=== PATIENT | female | born 1960 | race Caucasian/White ===

== ENCOUNTER 2018-07-23 18:06 | Outpatient (REF) | payer OTHER, SELFPAY ==
[2018-07-23 22:06] LABS: Anion Gap 9.1 mmol/L (3-11); BUN 15 mg/dL (7-18); CO2 26.9 mmol/L (21.0-32.0); CREATININE 1.03 mg/dL (0.55-1.02); Calcium 9.4 mg/dL (8.5-10.1); Chloride 102 mmol/L (98-107); Estimated GFR 55.04 (mL/min/1.73m2); Glucose 131 mg/dL (70-100); Potassium 3.8 mmol/L (3.5-5.1); Sodium 138 mmol/L (136-145)
[2018-07-23 22:16] LABS: Hemoglobin A1C 6.8 % (4.5-6.2)
[2018-07-23 22:48] LABS: Calculated LDL 124; Cholesterol 180 mg/dL (50-200); HDL Cholesterol 38 mg/dL (40-60); Triglyceride 93 mg/dL (30-150)
== END 2018-07-23 18:26 ==
LOC: NCHCN 18:06
PROVIDERS: PCP Nurse Practitioner Family; Visit Provider Nurse Practitioner Family
DX: Z00.00 Encounter for general adult medical examination without abnormal findings (principal); E11.9 Type 2 diabetes mellitus without complications; I10 Essential (primary) hypertension; N28.9 Disorder of kidney and ureter, unspecified; E66.9 Obesity, unspecified; M72.0 Palmar fascial fibromatosis [Dupuytren]
CPT/HCPCS: 80048; 80061; 83721; 83036

== ENCOUNTER 2019-09-24 16:47 | Outpatient (REF) | payer OTHER, SELFPAY ==
[2019-09-24 21:04] LABS: Hemoglobin A1C 6.8 % (3.8-5.6)
[2019-09-24 21:18] LABS: Anion Gap 5.4 mmol/L (3-11); BUN 14 mg/dL (7-18); CO2 28.6 mmol/L (21.0-32.0); CREATININE 0.99 mg/dL (0.55-1.02); Calcium 9.5 mg/dL (8.5-10.1); Chloride 104 mmol/L (98-107); Estimated GFR 57.41 (mL/min/1.73m2); Glucose 121 mg/dL (74-106); Magnesium 1.8 mg/dL (1.8-2.4); Potassium 3.8 mmol/L (3.5-5.1); Sodium 138 mmol/L (136-145); Vitamin B12 297 pg/mL (193-986)
== END 2019-09-24 17:07 ==
LOC: NCHCN 16:47
PROVIDERS: PCP Nurse Practitioner Family; Visit Provider Nurse Practitioner Family
DX: Z00.8 Encounter for other general examination (principal); E11.9 Type 2 diabetes mellitus without complications; I10 Essential (primary) hypertension; K21.9 Gastro-esophageal reflux disease without esophagitis; Z51.81 Encounter for therapeutic drug level monitoring
CPT/HCPCS: 80048; 82607; 83036; 83735

== ENCOUNTER 2020-03-26 15:11 | Outpatient (REF) | payer OTHER, SELFPAY ==
[2020-03-26 15:01] LABS: Microalb ug/mg Crea 4.2 ug/mg Cr
== END 2020-03-26 15:12 | disposition home or self-care (01) ==
LOC: NCHCN 15:11
PROVIDERS: PCP Nurse Practitioner Family; Visit Provider Nurse Practitioner Family
DX: E11.9 Type 2 diabetes mellitus without complications (principal); I10 Essential (primary) hypertension
CPT/HCPCS: 82043; 82570

== ENCOUNTER 2020-09-22 16:33 | Outpatient (REF) | payer OTHER, SELFPAY ==
[2020-09-22 17:08] LABS: Anion Gap 7.5 mmol/L (3-11); BUN 17 mg/dL (7-18); CO2 28.5 mmol/L (21.0-32.0); Calcium 9.2 mg/dL (8.5-10.1); Chloride 102 mmol/L (98-107); Estimated GFR 56.56 (mL/min/1.73m2); Glucose 128 mg/dL (74-106); Magnesium 1.8 mg/dL (1.8-2.4); Sodium 138 mmol/L (136-145); Vitamin B12 263 pg/mL (193-986)
== END 2020-09-22 16:34 | disposition home or self-care (01) ==
LOC: NCHCN 16:33
PROVIDERS: PCP Nurse Practitioner Family; Visit Provider Nurse Practitioner Family
DX: I10 Essential (primary) hypertension (principal); E11.9 Type 2 diabetes mellitus without complications; N28.9 Disorder of kidney and ureter, unspecified; K21.9 Gastro-esophageal reflux disease without esophagitis; R01.1 Cardiac murmur, unspecified; Z79.899 Other long term (current) drug therapy
CPT/HCPCS: 80048; 82607; 83735

== ENCOUNTER 2021-10-11 21:13 | Outpatient (REF) | payer OTHER, SELFPAY ==
[2021-10-11 22:01] LABS: Hemoglobin A1C 7.5 % (<5.7)
[2021-10-11 22:03] LABS: Anion Gap 10.9 mmol/L (3-11); BUN 22 mg/dL (7-18); CO2 27.1 mmol/L (21.0-32.0); CREATININE 1.5 mg/dL (0.55-1.02); Calcium 9.1 mg/dL (8.5-10.1); Chloride 106 mmol/L (98-107); Glucose 127 mg/dL (74-106); Sodium 144 mmol/L (136-145)
== END 2021-10-11 21:14 | disposition home or self-care (01) ==
LOC: NCHCN 21:13
PROVIDERS: PCP Nurse Practitioner Family; Visit Provider Nurse Practitioner Family
DX: E11.9 Type 2 diabetes mellitus without complications (principal); I10 Essential (primary) hypertension; E66.9 Obesity, unspecified
CPT/HCPCS: 80048; 83036

== ENCOUNTER 2021-10-27 18:22 | Outpatient (REF) | payer OTHER, SELFPAY ==
[2021-10-28 18:45] LABS: Albumin ug/mg Crea 16 (<30); Albumin, Ur 2.2 mg/dL (See Note); Creatinine, Ur 138.1 mg/dL (See Note)
== END 2021-10-27 18:23 | disposition home or self-care (01) ==
LOC: NCHCN 18:22
PROVIDERS: PCP Nurse Practitioner Family; Visit Provider Family Medicine
DX: E11.9 Type 2 diabetes mellitus without complications (principal)
CPT/HCPCS: 82043; 82570

== ENCOUNTER 2022-07-29 12:24 | Outpatient (REF) | payer OTHER, SELFPAY ==
[2022-07-29 14:26] LABS: HCT 40.8 % (36.0-46.0); HGB 13.2 g/dL (11.2-15.7); MCH 30.2 pg (27.0-33.0); MCHC 32.4 % (32.0-36.0); MCV 93 fL (80-95); MPV 9.8 fL (8.0-11.0); Platelet Count 209 10^3/uL (130-400); RBC 4.37 10^6/uL (3.93-5.22); RDW 13.1 % (11.7-14.6); RDW-SD 45.1 fL; WBC 6.44 10^3/uL (4.4-10.8)
[2022-07-29 14:46] LABS: BUN 16 mg/dL (7-18); Calcium 9.8 mg/dL (8.5-10.1); Chloride 103 mmol/L (98-107); Glucose 208 mg/dL (74-106); Sodium 139 mmol/L (136-145)
[2022-07-29 15:17] LABS: Hemoglobin A1C 9.4 % (<5.7)
== END 2022-07-29 12:25 | disposition home or self-care (01) ==
LOC: NCHCN 12:24
PROVIDERS: PCP Nurse Practitioner Family; Visit Provider Nurse Practitioner Family
DX: E11.9 Type 2 diabetes mellitus without complications (principal); I10 Essential (primary) hypertension; N18.32 Chronic kidney disease, stage 3b
CPT/HCPCS: 80048; 85027; 83036

== ENCOUNTER 2023-03-10 16:36 | Outpatient (REF) | payer OTHER, SELFPAY ==
[2023-03-10 21:35] LABS: Anion Gap 11.4 mmol/L (3-11); BUN 10 mg/dL (7-18); CO2 25.6 mmol/L (21.0-32.0); CREATININE 0.9 mg/dL (0.55-1.02); Calcium 9.2 mg/dL (8.5-10.1); Chloride 101 mmol/L (98-107); Estimated GFR 72.28 (mL/min/1.73m2); Glucose 213 mg/dL (74-106); Potassium 3.4 mmol/L (3.5-5.1); Sodium 138 mmol/L (136-145)
[2023-03-10 21:42] LABS: Hemoglobin A1C 9.6 % (<5.7)
[2023-03-10 21:53] LABS: Microalb ug/mg Crea 10.3 ug/mg Cr
== END 2023-03-10 16:37 | disposition home or self-care (01) ==
LOC: NCHCN 16:36
PROVIDERS: PCP Nurse Practitioner Family; Visit Provider Family Medicine
DX: E11.9 Type 2 diabetes mellitus without complications (principal)
CPT/HCPCS: 80048; 82043; 82570; 83036

== ENCOUNTER 2023-09-12 09:58 | Outpatient (REF) | payer OTHER, SELFPAY ==
--- NOTE | 2023-09-12 09:00 | PAPFT_PTH ---
PATIENT: Ghada Dover LOC: [facility]#:[id number] AGE/SX: 63/F ROOM: RE09/12/[address]: Rita Hilton : 1960 BED: DIS: 09/12/2023 SPEC #: [id number] RECD: 09/12/23 18:14 STATUS: ONUR REShamar #: [id number] HARRY: 09/12/23 09:[address]: Rita Carvalho DEPT: [facility] Cytology RECD BY: Joie Singh ENTERED: 09/12/23 18:14 SP TYPE: PAPFT OTHR DR: Radha Pacheco Tissues: 1 - CX/ENDOCX FOR PAP SMEARS Procedures: PAP THIN PREP/[facility] Screening HPV DNA PROBE Comments: [id number] (HPV 16 & 18/45)
== END 2023-09-12 09:59 | disposition home or self-care (01) ==
LOC: NCHCN 09:58
PROVIDERS: PCP Nurse Practitioner Family; Visit Provider Nurse Practitioner Family
DX: Z11.51 Encounter for screening for human papillomavirus (HPV) (principal); Z01.419 Encounter for gynecological examination (general) (routine) without abnormal findings
CPT/HCPCS: 88142; 87624

== ENCOUNTER 2024-03-14 09:06 | Outpatient (REF) | payer OTHER, SELFPAY ==
[2024-03-14 16:33] LABS: COMMENT (LAB VIEW ONLY) 76.78 mg/dL; Microalb ug/mg Crea 5.6 ug/mg Cr
[2024-03-14 17:06] LABS: BUN 14 mg/dL (7-18); CREATININE 0.9 mg/dL (0.55-1.02); Calcium 9.3 mg/dL (8.5-10.1); Calculated LDL 60 mg/dL (<100); Chloride 104 mmol/L (98-107); Cholesterol 117 mg/dL (<200); Estimated GFR 71.83 (mL/min/1.73m2); Glucose 152 mg/dL (74-106); HDL Cholesterol 45 mg/dL (40-60); Magnesium 1.7 mg/dL (1.8-2.4); Potassium 3.6 mmol/L (3.5-5.1); Sodium 141 mmol/L (136-145); Triglyceride 61 mg/dL (<150); Vitamin B12 401 pg/mL (193-986)
[2024-03-15 19:48] LABS: Hepatitis C Ab w Rflx HCV PCR Negative (Negative)
== END 2024-03-14 09:07 | disposition home or self-care (01) ==
LOC: NCHCN 09:06
PROVIDERS: PCP Nurse Practitioner Family; Visit Provider Nurse Practitioner Family
DX: E11.9 Type 2 diabetes mellitus without complications (principal); I10 Essential (primary) hypertension; E78.5 Hyperlipidemia, unspecified; Z51.81 Encounter for therapeutic drug level monitoring; Z11.59 Encounter for screening for other viral diseases
CPT/HCPCS: 80048; 80061; 86803; 82043; 82570; 82607; 83735

== ENCOUNTER 2024-10-17 17:05 | Outpatient (REF) | payer OTHER, SELFPAY ==
[2024-10-17 20:53] LABS: Anion Gap 7.2 mmol/L (3-11); BUN 25 mg/dL (7-18); CO2 29.8 mmol/L (21.0-32.0); Calcium 9.2 mg/dL (8.5-10.1); Chloride 103 mmol/L (98-107); Estimated GFR 56.11 (mL/min/1.73m2); Glucose 125 mg/dL (74-106); Potassium 3.5 mmol/L (3.5-5.1); Sodium 140 mmol/L (136-145)
== END 2024-10-17 17:06 | disposition home or self-care (01) ==
LOC: NCHCN 17:05
PROVIDERS: PCP Family Medicine; Visit Provider Family Medicine
DX: I10 Essential (primary) hypertension (principal)
CPT/HCPCS: 80048